=== PATIENT | female | born 1950 | race American Indian/Alaskan Native ===

== ENCOUNTER 2017-06-26 08:01 | Outpatient (CLI) | payer BC ==
--- NOTE | 2017-06-27 09:45 | Mammography Report ---
Bilateral mammogram: Compared to 05/28/16. CAD study utilized. Findings: Predominance adipose tissue bilaterally. Benign calcifications right breast without interval change. No mass. Normal axilla. Impression: Benign findings. Annual followup recommended. BI-RADS CATEGORY: 2 = Benign ACR BI-RADS MAMMOGRAPHIC CODES: 0 = Needs additional imaging evaluation; 1 = Negative; 2 = Benign; 3 = Probably benign; 4 = Suspicious; 5 = Malignant; 6 = Known biopsy-proven malignancy COMMENT: 1. Dense breast tissue, i.e., adenosis, fibrocystic changes, etc., may obscure an underlying neoplasm. 2. Approximately 10% of cancers are not detected with mammography. 3. A negative mammography report should not delay biopsy if a clinically suspicious mass is present. COMMENT: Patient follow-up letters are generated in [email or web address].
== END 2017-06-26 08:02 | disposition home or self-care (01) ==
LOC: MAMMO 08:01
PROVIDERS: ATTEND Family Medicine
DX: Z12.31 Encounter for screening mammogram for malignant neoplasm of breast (principal)
CPT/HCPCS: 77067; G0202

== ENCOUNTER 2019-06-30 10:13 | Outpatient (CLI) | payer MEDICARE ==
--- NOTE | 2019-06-30 12:52 | Mammography Report ---
BONE DEXA CLINICAL: Postmenopausal with a history of osteopenia. COMPARISON: 05/28/2016 and 12/05/2013 TECHNIQUE: 2 site bone DEXA performed on an Hologic scanner. FINDINGS: The average BMD of the lumbar spine L1-L4 is 1.006g/cm squared with a T score of -0.4 and a Z score o f +1.0. This compares to 0.985g/cm squared on the baseline exam and represents a +2.1 % change from t he [previous baseline]. The average BMD of the left hip is 0.702 g/cm squared with a T score of -2.0and a Z score of -1.0. Th is compares to 0.741 g/cm squared on the last exam and represents a -5.3 % change from the [last exam and a -9.2% change from baseline]. IMPRESSION: 1. WHO classification: Normal with average fracture risk based on spine measurements. 2. WHO classification osteopenia with increased fracture risk based on left hip measurements. 3. A modest improvement in spine BMD but a moderate decline in left hip BMD compared to previous exam s. 4. FRAX (10 year) Major osteoporotic fracture risk is 4.7% 5. FRAX (10 year) Hip fracture risk is 0.7% RECOMMENDATION: Clinical correlation and routine screening. Definitions: BMD equal bone mineral density T score = BMD related to peak bone mass of young adult (Vargas expressed an standard deviation) Z score = age-matched BMD expressed in SD World health organization (WHO) diagnostic criteria Normal T score greater than equal to 1 standard deviation Osteopenia T score between -1 and -2.4 standard deviation Osteoporosis T score -2.5 standard deviation or below. Note: BMD is not the only risk factor for fracture; also consider factors such as the patient's age, risk of falling, previous osteoporotic fracture, family history of osteoporotic fractures, current sm oker and low body weight. Z scores are not calculated if greater than 80 years of age. Signer Name: Rangel Sevilla MD Signed: 06/30/2019 12:48 PM Workstation Name: [id number]
--- NOTE | 2019-06-30 14:22 | Mammography Report ---
DIGITAL SCREENING MAMMOGRAM WITH CAD, 06/30/2019 INDICATION: Routine screening mammography. TECHNIQUE: Digital bilateral 2D mammography was obtained in the craniocaudal and mediolateral obliq ue projections. This examination was interpreted with the benefit of Computer-Aided Detection analysi s. COMPARISON: 06/28/2018 FINDINGS: Breast Density: The breasts are almost entirely fatty. There is no evidence of dominant mass, suspicious calcifications or architectural distortion in eithe r breast. IMPRESSION: No mammographic evidence of malignancy. Follow up recommendation: Routine yearly BI-RADS Category 1: Negative. A "normal" or negative report should not discourage follow up or biopsy of a clinically significant f inding. A written summary of these findings will be mailed to the patient. The patient will be entered into a mammography reporting system which will generate a reminder letter for the patient's next appointmen t at the appropriate interval. The [employer] recommends yearly mammograms starting at age 40 and continuing as l sharyn as a woman is in good health. Breast MRI is recommended for women with an approximate 20-25% or greater lifetime risk of breast cancer, including women with a strong family history of breast or ova jose l cancer or who have been treated for Hodgkin's disease. Signer Name: Rangel Sevilla MD Signed: 06/30/2019 2:18 PM Workstation Name: [id number]
== END 2019-06-30 10:14 | disposition home or self-care (01) ==
LOC: MAMMO 10:13
PROVIDERS: ATTEND Internal Medicine
DX: Z12.31 Encounter for screening mammogram for malignant neoplasm of breast (principal); M85.852 Other specified disorders of bone density and structure, left thigh; Z78.0 Asymptomatic menopausal state
CPT/HCPCS: 77067; 77080

== ENCOUNTER 2020-07-02 09:32 | Outpatient (CLI) | payer MEDICARE ==
--- NOTE | 2020-07-02 15:59 | Mammography Report ---
DIGITAL SCREENING MAMMOGRAM WITH CAD, 07/02/2020 CLINICAL INFORMATION / INDICATION: Routine screening mammography. MAMMOGRAM SCREENING TECHNIQUE: Digital bilateral 2D mammography was obtained in the craniocaudal and mediolateral obliqu e projections. This examination was interpreted with the benefit of Computer-Aided Detection analysis . COMPARISON: 06/30/2019 and 06/28/2018 FINDINGS: Breast Density: The breasts are almost entirely fatty. No dominant mass, suspicious calcifications, or architectural distortion in either breast. Stable benign density in the right breast, likely reflects an intramammary lymph node IMPRESSION: No mammographic evidence of malignancy. Follow up recommendation: Routine yearly BI-RADS Category 2: Benign. A "normal" or negative report should not discourage follow up or biopsy of a clinically significant f inding. A written summary of these findings will be mailed to the patient. The patient will be entered into a mammography reporting system which will generate a reminder letter for the patient's next appointmen t at the appropriate interval. The [employer] recommends yearly mammograms starting at age 40 and continuing as l sharyn as a woman is in good health. Breast MRI is recommended for women with an approximate 20-25% or greater lifetime risk of breast cancer, including women with a strong family history of breast or ova jose l cancer or who have been treated for Hodgkin's disease. Signer Name: Miguel Chu MD Signed: 07/02/2020 3:54 PM Workstation Name: [id number]
== END 2020-07-02 09:33 | disposition home or self-care (01) ==
LOC: MAMMO 09:32
PROVIDERS: ATTEND Internal Medicine
DX: Z12.31 Encounter for screening mammogram for malignant neoplasm of breast (principal)
CPT/HCPCS: 77067